=== PATIENT | female | born 1935 | race Caucasian/White ===

== ENCOUNTER 2018-02-24 15:11 | Inpatient (IN) | payer OTHER ==
[~2018-02-24] VITALS: Ht 152.4 cm; Wt 70.3 kg
[2018-02-24 15:51] LABS: BASOPHILS # (AUTO) 0.01 x10^3/uL (0-0.1); BASOPHILS % (AUTO) 0 % (0-1); EOSINOPHILS # (AUTO) 0.03 x10^3/uL (0-0.4); EOSINOPHILS % (AUTO) 1 % (1-7); LYMPHOCYTES # (AUTO) 1.03 x10^3/uL (1-3.4); LYMPHOCYTES % (AUTO) 21 % (22-44); MD NO; MEAN CORPUSCULAR HGB CONC 32.9 g/dL (32.4-35.8); MEAN CORPUSCULAR VOLUME 81.9 fL (80-100); MEAN PLATELET VOLUME 9.1 fL (7.4-10.4); MONOCYTES # (AUTO) 0.58 x10^3/uL (0.2-0.8); MONOCYTES % (AUTO) 12 % (2-9); NEUTROPHILS # (AUTO) 3.21 x10^3/uL (1.8-6.8); NEUTROPHILS % (AUTO) 66 % (42-75); PLATELET COUNT 159 x10^3/uL (130-400); RED BLOOD COUNT 4.74 x10^6/uL (3.82-5.3); RED CELL DISTRIBUTION WIDTH 16.2 % (9.6-15.2)
[2018-02-24 15:55] LABS: CULTURE INDICATED? YES; MICROSCOPIC INDICATED
[2018-02-24 15:56] LABS: ALBUMIN 3.7 g/dL (3.4-5.0); ANION GAP 6 mmol/L (5-15); CALCIUM 8.4 mg/dL (8.5-10.1); CHLORIDE 113 mmol/L (98-107); CREATININE 0.77 mg/dL (0.55-1.02)
[2018-02-24] MEDS ORDERED: SODIUM CHLORIDE FLUSH 10ML SYR IVF ONE (16:00)
[2018-02-24] MEDS ORDERED: LOSA50TA6 PO (17:41)
[2018-02-24 18:51] VITALS: BP 142/56
[2018-02-25 02:41] VITALS: BP 125/64
[2018-02-25 06:45] VITALS: BP 145/70
[2018-02-25 07:42] LABS: BASOPHILS # (AUTO) 0.01 x10^3/uL (0-0.1); BASOPHILS % (AUTO) 0 % (0-1); EOSINOPHILS # (AUTO) 0.03 x10^3/uL (0-0.4); EOSINOPHILS % (AUTO) 1 % (1-7); LYMPHOCYTES % (AUTO) 26 % (22-44); MD NO; MEAN CORPUSCULAR HEMOGLOBIN 26.4 pg (27.0-34.8); MEAN CORPUSCULAR HGB CONC 32.4 g/dL (32.4-35.8); MEAN CORPUSCULAR VOLUME 81.6 fL (80-100); MEAN PLATELET VOLUME 8.5 fL (7.4-10.4); MONOCYTES # (AUTO) 0.47 x10^3/uL (0.2-0.8); MONOCYTES % (AUTO) 15 % (2-9); NEUTROPHILS # (AUTO) 1.79 x10^3/uL (1.8-6.8); NEUTROPHILS % (AUTO) 58 % (42-75); PLATELET COUNT 141 x10^3/uL (130-400); RED BLOOD COUNT 4.57 x10^6/uL (3.82-5.3); RED CELL DISTRIBUTION WIDTH 16.2 % (9.6-15.2)
[2018-02-25 08:20] LABS: ALANINE AMINOTRANSFERASE 19 U/L (12-78); ALBUMIN 3.3 g/dL (3.4-5.0); ANION GAP 7 mmol/L (5-15); CALCIUM 7.7 mg/dL (8.5-10.1); CHLORIDE 111 mmol/L (98-107); CREATININE 0.56 mg/dL (0.55-1.02)
[2018-02-25 08:22] LABS: ALKALINE PHOSPHATASE 58 U/L (45-117); BILIRUBIN,TOTAL 0.7 mg/dL (0.2-1.0); TOTAL PROTEIN 6.1 g/dL (6.4-8.2)
[2018-02-25] MEDS ORDERED: MORPHINE SULFATE 4 MG/ML, 1ML IVPush ONE (10:00)
[2018-02-25] MEDS ORDERED: ACETAMINOPHEN 325 MG TABLET PO PRN (10:30)
[2018-02-25 12:08] VITALS: BP 154/67
[2018-02-25 20:11] VITALS: BP 136/69
[2018-02-25] MEDS: LOSARTAN 50MG TABLET PO SCH (20:25)
[2018-02-26 02:11] VITALS: BP 132/70
[2018-02-26 04:48] LABS: BASOPHILS # (AUTO) 0.01 x10^3/uL (0-0.1); BASOPHILS % (AUTO) 0 % (0-1); EOSINOPHILS # (AUTO) 0.04 x10^3/uL (0-0.4); EOSINOPHILS % (AUTO) 1 % (1-7); LYMPHOCYTES # (AUTO) 0.82 x10^3/uL (1-3.4); LYMPHOCYTES % (AUTO) 23 % (22-44); MD NO; MEAN CORPUSCULAR HEMOGLOBIN 26.6 pg (27.0-34.8); MEAN CORPUSCULAR HGB CONC 32.6 g/dL (32.4-35.8); MEAN CORPUSCULAR VOLUME 81.8 fL (80-100); MONOCYTES # (AUTO) 0.56 x10^3/uL (0.2-0.8); MONOCYTES % (AUTO) 16 % (2-9); NEUTROPHILS # (AUTO) 2.16 x10^3/uL (1.8-6.8); NEUTROPHILS % (AUTO) 60 % (42-75); PLATELET COUNT 147 x10^3/uL (130-400); RED BLOOD COUNT 4.58 x10^6/uL (3.82-5.3)
[2018-02-26 06:47] VITALS: BP 138/68
[2018-02-26] MEDS: LOSARTAN 50MG TABLET PO SCH (09:00)
[2018-02-26] MEDS ORDERED: PNEUMOCOCCAL 23 VACCINE IM-VACC ONE (13:00)
== END 2018-02-26 13:15 | disposition home or self-care (01) | DRG 696 ==
LOC: ED 17:31 → 3NW 17:32 → ED 18:19 → 3NW 18:21 → DCLOUNGE 02-26 12:58
PROVIDERS: ADMIT Hospitalist; ATTEND Hospitalist
DX: R31.0 Gross hematuria (principal); D72.819 Decreased white blood cell count, unspecified; I10 Essential (primary) hypertension; M47.9 Spondylosis, unspecified; K80.20 Calculus of gallbladder without cholecystitis without obstruction; Z90.710 Acquired absence of both cervix and uterus
CPT/HCPCS: 36415; 74176; 74177; 80048; 80053; 81001; 82040; 83735; 84100; 85014; 85018; 85025; 87086; 90732; 99285

== ENCOUNTER → 2018-03-27 | Outpatient (CLI) | payer MEDICARE, MEDICAID, OTHER ==
[~2018-03-27] MED LIST: LOSA50TA6 PO
[2018-03-27 15:25] LABS: BASOPHILS # (AUTO) 0.01 x10^3/uL (0-0.1); BASOPHILS % (AUTO) 0 % (0-1); EOSINOPHILS # (AUTO) 0.02 x10^3/uL (0-0.4); EOSINOPHILS % (AUTO) 1 % (1-7); LYMPHOCYTES # (AUTO) 0.88 x10^3/uL (1-3.4); LYMPHOCYTES % (AUTO) 23 % (22-44); MD NO; MEAN CORPUSCULAR HEMOGLOBIN 24.6 pg (27.0-34.8); MEAN CORPUSCULAR HGB CONC 31.4 g/dL (32.4-35.8); MEAN CORPUSCULAR VOLUME 78.3 fL (80-100); MEAN PLATELET VOLUME 8.3 fL (7.4-10.4); MONOCYTES # (AUTO) 0.47 x10^3/uL (0.2-0.8); MONOCYTES % (AUTO) 12 % (2-9); NEUTROPHILS # (AUTO) 2.44 x10^3/uL (1.8-6.8); NEUTROPHILS % (AUTO) 64 % (42-75); PLATELET COUNT 210 x10^3/uL (130-400); RED CELL DISTRIBUTION WIDTH 17.3 % (9.6-15.2)
[2018-03-27 15:28] LABS: ALBUMIN 3.4 g/dL (3.4-5.0); ANION GAP 7 mmol/L (5-15); CALCIUM 8.4 mg/dL (8.5-10.1); CHLORIDE 107 mmol/L (98-107)
[2018-03-27 15:31] LABS: ALANINE AMINOTRANSFERASE 21 U/L (12-78); ALKALINE PHOSPHATASE 68 U/L (45-117); BILIRUBIN,TOTAL 0.9 mg/dL (0.2-1.0); CREATININE 0.78 mg/dL (0.55-1.02); TOTAL PROTEIN 6.4 g/dL (6.4-8.2)
[2018-03-27 16:27] LABS: MICROSCOPIC INDICATED
== END | disposition home or self-care (01) ==
LOC: STAR 14:12
PROVIDERS: ATTEND Urology
DX: Z01.818 Encounter for other preprocedural examination (principal); D49.511 Neoplasm of unspecified behavior of right kidney
CPT/HCPCS: 36415; 80053; 81001; 85025; 87086; 93005

== ENCOUNTER → 2018-05-05 | Outpatient (CLI) | payer MEDICARE, MEDICAID, OTHER ==
[2018-05-05 16:25] LABS: ANION GAP 8 mmol/L (5-15); CALCIUM 8.3 mg/dL (8.5-10.1); CHLORIDE 104 mmol/L (98-107)
== END | disposition home or self-care (01) ==
LOC: LAB 15:54
PROVIDERS: ATTEND Internal Medicine Cardiovascular Disease
DX: I35.0 Nonrheumatic aortic (valve) stenosis (principal)
CPT/HCPCS: 36415; 80048

== ENCOUNTER → 2018-05-11 | Outpatient (CLI) | payer MEDICARE, MEDICAID ==
[~2018-05-11] MED LIST changes: +OMNIPAQUE 350 MG/ML, 150 ML BOTTLE ONE
== END | disposition home or self-care (01) ==
LOC: CVU 08:13
PROVIDERS: ATTEND Internal Medicine Cardiovascular Disease
DX: I65.23 Occlusion and stenosis of bilateral carotid arteries (principal); Q25.46 Tortuous aortic arch; R91.8 Other nonspecific abnormal finding of lung field; I10 Essential (primary) hypertension; I35.0 Nonrheumatic aortic (valve) stenosis
CPT/HCPCS: 71275; 74174; 93880; 94060; 94726; 94729; Q9967

== ENCOUNTER 2018-06-02 06:03 | Inpatient (IN) | payer MEDICARE, MEDICAID ==
[~2018-06-02] VITALS: Ht 160 cm; Wt 63.8 kg
[~2018-06-02 06:03] MED LIST changes: -LOSA50TA6 PO; +LOSA50TA7 PO; -OMNIPAQUE 350 MG/ML, 150 ML BOTTLE ONE
[2018-06-02] MEDS ORDERED: SODIUM CHLORIDE 0.9% 1,000 ML IV ONE (06:16)
[2018-06-02 06:28] VITALS: BP 159/82
[2018-06-02] MEDS ORDERED: ONDANSETRON 2MG/ML, 2ML IVPush PRN (06:30)
[2018-06-02] MEDS ORDERED: CHLORHEXIDINE 15 ML UDC MM PRN (06:30)
[2018-06-02 06:43] LABS: BASOPHILS # (AUTO) 0.01 x10^3/uL (0-0.1); BASOPHILS % (AUTO) 0 % (0-1); EOSINOPHILS # (AUTO) 0.05 x10^3/uL (0-0.4); EOSINOPHILS % (AUTO) 1 % (1-7); LYMPHOCYTES # (AUTO) 0.85 x10^3/uL (1-3.4); LYMPHOCYTES % (AUTO) 25 % (22-44); MD NO; MEAN CORPUSCULAR HEMOGLOBIN 23.7 pg (27.0-34.8); MEAN CORPUSCULAR HGB CONC 31.7 g/dL (32.4-35.8); MEAN CORPUSCULAR VOLUME 74.9 fL (80-100); MEAN PLATELET VOLUME 8.2 fL (7.4-10.4); MONOCYTES # (AUTO) 0.43 x10^3/uL (0.2-0.8); MONOCYTES % (AUTO) 13 % (2-9); NEUTROPHILS # (AUTO) 2.08 x10^3/uL (1.8-6.8); NEUTROPHILS % (AUTO) 61 % (42-75); PLATELET COUNT 178 x10^3/uL (130-400); RED BLOOD COUNT 4.94 x10^6/uL (3.82-5.3); RED CELL DISTRIBUTION WIDTH 16.5 % (9.6-15.2)
[2018-06-02 06:56] LABS: ALANINE AMINOTRANSFERASE 16 U/L (12-78); ALBUMIN 3.6 g/dL (3.4-5.0); ANION GAP 6 mmol/L (5-15); CALCIUM 8.2 mg/dL (8.5-10.1); CHLORIDE 110 mmol/L (98-107); CREATININE 1.15 mg/dL (0.55-1.02)
[2018-06-02 07:01] LABS: ALKALINE PHOSPHATASE 71 U/L (45-117); BILIRUBIN,TOTAL 0.4 mg/dL (0.2-1.0); TOTAL PROTEIN 6.8 g/dL (6.4-8.2)
[2018-06-02] MEDS ORDERED: FENTANYL PF 250 MCG/5ML ONE (07:25)
[2018-06-02] MEDS ORDERED: PROPOFOL 10 MG/ML, 20ML ONE (07:27)
[2018-06-02] MEDS ORDERED: ROCURONIUM 10MG/ML,5ML ONE (07:27)
[2018-06-02] MEDS ORDERED: ONDANSETRON ODT 8 MG ONE (07:27)
[2018-06-02] MEDS ORDERED: HEPARIN 1,000 UNITS/ML, 30ML ONE (07:27)
[2018-06-02] MEDS ORDERED: LIDOCAINE GEL 2%, 5ML ONE (07:28)
[2018-06-02] MEDS ORDERED: CEFAZOLIN 1,000 MG ONE (07:41)
[2018-06-02] MEDS ORDERED: SUCCINYLCHOLINE 20 MG/ML, 10ML ONE (07:41)
[2018-06-02] MEDS ORDERED: ONDANSETRON 2MG/ML, 2ML ONE (07:41)
[2018-06-02 07:59] LABS: INTERNATIONAL NORMALIZED RATIO 0.99 (0.93-1.1); PROTHROMBIN TIME 10.2 Seconds (9.6-11.5)
[2018-06-02] MEDS ORDERED: PROTAMINE SULFATE 10 MG/ML, 25ML ONE (08:24)
[2018-06-02] MEDS: SODIUM CHLORIDE 0.9% 1,000 ML IV SCH ×2 (09:16→20:20)
[2018-06-02] MEDS ORDERED: ACETAMINOPHEN 325 MG TABLET PO PRN (09:30)
[2018-06-02] MEDS ORDERED: LABETALOL 20 MG/4 ML IVPush PRN (09:30)
[2018-06-02] MEDS ORDERED: hydrALAzine 20 MG/ML, 1ML IVPush PRN (09:30)
[2018-06-02] MEDS ORDERED: HYDROcodone/APAP 5/325 TABLET ONE (11:26)
[2018-06-02] MEDS ORDERED: HYDROcodone/APAP 5/325 TABLET PO PRN (11:30)
[2018-06-02 19:11] VITALS: BP 120/61
[2018-06-02] MEDS ORDERED: CLOPIDOGREL 300 MG TABLET PO ONE (21:00)
[2018-06-03 02:12] VITALS: BP 115/56
[2018-06-03 05:31] LABS: BASOPHILS # (AUTO) 0.02 x10^3/uL (0-0.1); BASOPHILS % (AUTO) 0 % (0-1); EOSINOPHILS # (AUTO) 0.07 x10^3/uL (0-0.4); EOSINOPHILS % (AUTO) 1 % (1-7); LYMPHOCYTES % (AUTO) 18 % (22-44); MD NO; MEAN CORPUSCULAR HEMOGLOBIN 24.2 pg (27.0-34.8); MEAN CORPUSCULAR VOLUME 75.6 fL (80-100); MEAN PLATELET VOLUME 9.2 fL (7.4-10.4); MONOCYTES # (AUTO) 0.74 x10^3/uL (0.2-0.8); MONOCYTES % (AUTO) 12 % (2-9); NEUTROPHILS # (AUTO) 4.34 x10^3/uL (1.8-6.8); NEUTROPHILS % (AUTO) 69 % (42-75); PLATELET COUNT 160 x10^3/uL (130-400); RED CELL DISTRIBUTION WIDTH 16.4 % (9.6-15.2)
[2018-06-03 05:40] LABS: ALBUMIN 2.8 g/dL (3.4-5.0); ANION GAP 4 mmol/L (5-15); CALCIUM 7.9 mg/dL (8.5-10.1); CHLORIDE 110 mmol/L (98-107); CREATININE 0.99 mg/dL (0.55-1.02)
[2018-06-03 07:39] VITALS: BP 104/56
[2018-06-03] MEDS ORDERED: CLOPIDOGREL 75 MG TABLET PO SCH (09:00)
[2018-06-03] MEDS ORDERED: ASPIRIN 81 MG TABLET EC PO SCH (09:00)
[2018-06-03] MEDS: SODIUM CHLORIDE 0.9% 1,000 ML IV SCH (11:33)
[2018-06-03 12:43] VITALS: BP 132/57
[2018-06-03] MEDS ORDERED: ASPI-621 PO (14:51)
[2018-06-03] MEDS ORDERED: CLOP75TA PO (14:51)
== END 2018-06-03 16:31 | disposition home or self-care (01) | DRG 266 ==
LOC: ORIP 06:03 → CSU 08:59 → 5SO 16:58
PROVIDERS: ADMIT Internal Medicine Cardiovascular Disease; ATTEND Internal Medicine Cardiovascular Disease
PROC: B24BZZ4 Ultrasonography of Heart with Aorta, Transesophageal (ICD-10-PCS; 2018-06-02)
PROC: B3101ZZ Fluoroscopy of Thoracic Aorta using Low Osmolar Contrast (ICD-10-PCS; 2018-06-02)
PROC: 03HY32Z Insertion of Monitoring Device into Upper Artery, Percutaneous Approach (ICD-10-PCS; 2018-06-02)
PROC: 4A133B1 Monitoring of Arterial Pressure, Peripheral, Percutaneous Approach (ICD-10-PCS; 2018-06-02)
PROC: 4A133J1 Monitoring of Arterial Pulse, Peripheral, Percutaneous Approach (ICD-10-PCS; 2018-06-02)
PROC: 02RF38Z Replacement of Aortic Valve with Zooplastic Tissue, Percutaneous Approach (ICD-10-PCS; principal; 2018-06-02 08:00)
DX: I35.0 Nonrheumatic aortic (valve) stenosis (principal); Z00.6 Encounter for examination for normal comparison and control in clinical research program; I50.33 Acute on chronic diastolic (congestive) heart failure; I10 Essential (primary) hypertension; Z85.528 Personal history of other malignant neoplasm of kidney; Z90.5 Acquired absence of kidney
CPT/HCPCS: 33361; 36415; 80048; 80053; 82040; 83880; 85025; 85347; 85610; 85730; 86850; 86860; 86870; 86880; 86900; 86902; 86922; 86923; 87081; 93005; 93306; 93312; 93321; 93325; 93355; C1760; C1769; C1894; G0378; J0690; J1644; J2405; J2704; J2720; J3010; Q0162; J0330; J0360; J3490; J7030; Q9967

== ENCOUNTER → 2018-06-30 | Outpatient (CLI) | payer MEDICARE, MEDICAID ==
[~2018-06-30] MED LIST changes: +ASPI-621 PO; +CLOP75TA PO
== END | disposition home or self-care (01) ==
LOC: CVU 08:25
PROVIDERS: ATTEND Internal Medicine Cardiovascular Disease
DX: I34.8 Other nonrheumatic mitral valve disorders (principal); I10 Essential (primary) hypertension
CPT/HCPCS: 93306

== ENCOUNTER 2019-01-02 13:31 | Inpatient (IN) | payer MEDICAID, MEDICARE ==
[~2019-01-02] VITALS: Ht 144.8 cm; Wt 77.9 kg
[~2019-01-02 13:31] MED LIST changes: -ASPI-621 PO; +ASPI81TA45 PO; +LOSA50TA14 PO; -LOSA50TA7 PO
[2019-01-02] MEDS ORDERED: ACETAMINOPHEN 325 MG TABLET ONE (14:11)
[2019-01-02] MEDS ORDERED: ONDANSETRON 2MG/ML, 2ML ONE (14:14)
[2019-01-02] MEDS ORDERED: SODIUM CHLORIDE FLUSH 10ML SYR IVF ONE (14:30)
[2019-01-02] MEDS ORDERED: ONDANSETRON 2MG/ML, 2ML IVPush ONE (14:30)
[2019-01-02] MEDS ORDERED: ACETAMINOPHEN 325 MG TABLET PO ONE (14:30)
--- NOTE | 2019-01-02 14:43 | NUR ---
PT TO ROOM 39 W/ C/O FEVER, SORE THROAT, AND GENERALLY NOT FEELING WELL. PT PLACED ON MONITORS. PIV INITIATED. MEDICATED PER NOV. EKG CMP. PT RESTING ON GURNEY. NADN. REPOSITIONED FOR COMFORT. FAMILY AT BEDSIDE.
--- NOTE | 2019-01-02 14:48 | NUR ---
PT BP NOTED TO BE SBP 87 THEN AGAIN AT 94. SPOKE W/ DR. LATIF WHO STATES TO MONITOR BP UNTIL LAB WORK RETURNS TO ASSESS BUN/CREATININE.
[2019-01-02 14:49] LABS: CULTURE INDICATED? YES; MICROSCOPIC INDICATED
[2019-01-02 14:54] LABS: INTERNATIONAL NORMALIZED RATIO 1.04 (0.93-1.1); PROTHROMBIN TIME 10.9 Seconds (9.6-11.5)
[2019-01-02 14:55] LABS: ALANINE AMINOTRANSFERASE 32 U/L (12-78); ALBUMIN 2.7 g/dL (3.4-5.0); ANION GAP 10 mmol/L (5-15); CALCIUM 7.7 mg/dL (8.5-10.1); CHLORIDE 103 mmol/L (98-107); CREATININE 2.65 mg/dL (0.55-1.02)
[2019-01-02 15:00] LABS: ALKALINE PHOSPHATASE 88 U/L (45-117); BILIRUBIN,TOTAL 1.2 mg/dL (0.2-1.0); TOTAL PROTEIN 6.2 g/dL (6.4-8.2)
[2019-01-02] MEDS ORDERED: CEFTRIAXONE PMX 1GM/50ML 50 ML IVPB ONE (15:00)
--- NOTE | 2019-01-02 15:05 | NUR ---
Break RN note: Pt resting in bed, NADN, resp even and unlabored. Pt denies needs at this time.
[2019-01-02 15:15] LABS: BASOPHILS % (AUTO) 0 % (0-1); EOSINOPHILS # (AUTO) 0.01 x10^3/uL (0-0.4); EOSINOPHILS % (AUTO) 0 % (1-7); LYMPHOCYTES # (AUTO) 0.15 x10^3/uL (1-3.4); LYMPHOCYTES % (AUTO) 4 % (22-44); MD SCAN; MEAN CORPUSCULAR HEMOGLOBIN 23.6 pg (27.0-34.8); MEAN CORPUSCULAR HGB CONC 31.4 g/dL (32.4-35.8); MEAN CORPUSCULAR VOLUME 74.9 fL (80-100); MONOCYTES # (AUTO) 0.18 x10^3/uL (0.2-0.8); MONOCYTES % (AUTO) 5 % (2-9); NEUTROPHILS # (AUTO) 3.49 x10^3/uL (1.8-6.8); NEUTROPHILS % (AUTO) 91 % (42-75); PLATELET COUNT 91 x10^3/uL (130-400); RED BLOOD COUNT 4.31 x10^6/uL (3.82-5.3); RED CELL DISTRIBUTION WIDTH 16.3 % (9.6-15.2)
[2019-01-02] MEDS ORDERED: CEFTRIAXONE PMX 1GM/50ML 50 ML ONE (15:26)
--- NOTE | 2019-01-02 15:27 | NUR ---
SPOKE W/ ERP DR. LATIF ABOUT PT BP REMAINING IN THE HIGH 80'S SYSTOLICALLY. PER ERP GIVE 1 L NS BOLUS. DISCUSSED PT SEPSIS PROTOCOL 30 ML/KG. PER ERP HOLD OFF FOR NOW AND ASSESS PT ONCE 1L NS INFUSED.
[2019-01-02] MEDS ORDERED: SODIUM CHLORIDE 0.9% 1,000ML IVBOLUS ONE ×2 (15:30→16:00)
--- NOTE | 2019-01-02 16:42 | NUR ---
PT RESTING ON SIMRAN. MYRIAM. VSS. FAMILY REMAINS AT BEDSIDE. AWARE OF POC FOR ADMIT.
--- NOTE | 2019-01-02 17:28 | NUR ---
DR. SILVERMAN AT BEDSIDE.
[2019-01-02] MEDS ORDERED: SODIUM CHLORIDE FLUSH 10ML SYR IVF PRN (17:30)
--- NOTE | 2019-01-02 17:34 | NUR ---
PT RESTING ON GURNEY. NADN. CHAPPELL.
[2019-01-02] MEDS ORDERED: ONDANSETRON 2MG/ML, 2ML IVPush PRN (18:00)
[2019-01-02] MEDS ORDERED: ONDANSETRON ODT 4 MG PO PRN (18:00)
[2019-01-02] MEDS ORDERED: LIDODERM 5% PATCH TD PRN (18:00)
[2019-01-02] MEDS ORDERED: BISACODYL 10 MG SUPP PR PRN (18:00)
[2019-01-02] MEDS ORDERED: LABETALOL 5 MG/ML SYRINGE IVPush PRN (18:00)
[2019-01-02] MEDS ORDERED: hydrALAzine 20 MG/ML, 1ML IVPush PRN (18:00)
[2019-01-02] MEDS ORDERED: DOCUSATE 100 MG CAPSULE PO PRN (18:00)
[2019-01-02] MEDS ORDERED: ZOLPIDEM 5MG TABLET PO PRN (18:00)
[2019-01-02] MEDS: HEPARIN 5,000 UNITS/ML, 1ML SQ SCH (18:00)
[2019-01-02] MEDS ORDERED: POLYETHYLENE GLYCOL 17 GM PACKET PO PRN (18:00)
--- NOTE | 2019-01-02 18:07 | NUR ---
REPORT GIVEN TO AMANDA, RECEIVING RN. ALL QUESTIONS ANSWERED. AWAITING PT TRANSPORT.
[2019-01-02 18:41] LABS: BASOPHILS % (AUTO) 0 % (0-1); EOSINOPHILS # (AUTO) 0.01 x10^3/uL (0-0.4); EOSINOPHILS % (AUTO) 0 % (1-7); LYMPHOCYTES # (AUTO) 0.25 x10^3/uL (1-3.4); LYMPHOCYTES % (AUTO) 5 % (22-44); MD SCAN; MEAN CORPUSCULAR HEMOGLOBIN 24.2 pg (27.0-34.8); MEAN CORPUSCULAR HGB CONC 32.3 g/dL (32.4-35.8); MEAN CORPUSCULAR VOLUME 74.8 fL (80-100); MEAN PLATELET VOLUME 9.4 fL (7.4-10.4); MONOCYTES # (AUTO) 0.64 x10^3/uL (0.2-0.8); MONOCYTES % (AUTO) 13 % (2-9); NEUTROPHILS # (AUTO) 3.99 x10^3/uL (1.8-6.8); NEUTROPHILS % (AUTO) 82 % (42-75); PLATELET COUNT 79 x10^3/uL (130-400); RED CELL DISTRIBUTION WIDTH 16.6 % (9.6-15.2)
[2019-01-02 18:54] LABS: HCT (SEDRATE) 27.7 % (34.6-47.8)
[2019-01-02 18:58] LABS: ANION GAP 8 mmol/L (5-15); CALCIUM 6.8 mg/dL (8.5-10.1); CHLORIDE 108 mmol/L (98-107)
[2019-01-02 19:00] LABS: CREATININE 2.28 mg/dL (0.55-1.02)
[2019-01-02 19:10] LABS: FREE T4 (FREE THYROXINE) 1.31 ng/dL (0.76-1.46); THYROID STIMULATING HORMONE 0.405 mIU/L (0.358-3.740)
[2019-01-02 20:22] VITALS: BP 105/45
[2019-01-02] MEDS: LACTATED RINGERS 1,000 ML IV SCH (21:05)
[2019-01-02 22:14] VITALS: BP 159/86
[2019-01-02] MEDS: ACETAMINOPHEN 325 MG TABLET PO PRN (22:19)
[2019-01-02 23:40] VITALS: BP 89/42
[2019-01-02 23:59] VITALS: BP 89/39
[2019-01-03 00:15] VITALS: BP 93/53
[2019-01-03 01:41] VITALS: BP 105/45
[2019-01-03] MEDS: HEPARIN 5,000 UNITS/ML, 1ML SQ SCH ×4 (02:00→17:42)
[2019-01-03] MEDS: CEFTRIAXONE PMX 1GM/50ML 50 ML IV SCH ×2 (03:47→15:16)
[2019-01-03] MEDS: LACTATED RINGERS 1,000 ML IV SCH ×3 (05:09→20:04)
[2019-01-03 07:56] VITALS: BP 100/53
[2019-01-03] MEDS: PANTOPROZOLE 40MG TABLET PO SCH (08:11)
[2019-01-03 18:49] VITALS: BP 95/50
[2019-01-03] MEDS: ACETAMINOPHEN 325 MG TABLET PO PRN (20:03)
[2019-01-04 01:36] VITALS: BP 99/59
[2019-01-04] MEDS: LACTATED RINGERS 1,000 ML IV SCH ×3 (03:41→20:19)
[2019-01-04] MEDS: CEFTRIAXONE PMX 1GM/50ML 50 ML IV SCH (03:42)
[2019-01-04 06:01] LABS: MEAN CORPUSCULAR HEMOGLOBIN 24.1 pg (27.0-34.8); MEAN CORPUSCULAR VOLUME 75.5 fL (80-100); RED BLOOD COUNT 3.54 x10^6/uL (3.82-5.3); RED CELL DISTRIBUTION WIDTH 17.1 % (9.6-15.2)
[2019-01-04 06:02] LABS: ANION GAP 6 mmol/L (5-15); CALCIUM 7.5 mg/dL (8.5-10.1); CHLORIDE 109 mmol/L (98-107); CREATININE 2.09 mg/dL (0.55-1.02)
[2019-01-04 06:28] LABS: MEAN PLATELET VOLUME 10.2 fL (7.4-10.4); PLATELET COUNT 75 x10^3/uL (130-400)
[2019-01-04 06:29] LABS: MD YES
[2019-01-04 06:31] LABS: EOS% (MANUAL) 3 % (1-7); LYMPH#(MANUAL) 0.43 x10^3/uL (1-3.4); LYMPHS% (MANUAL) 13 % (22-44); MONOS#(MANUAL) 0.56 x10^3/uL (0.3-2.7); MONOS% (MANUAL) 17 % (2-9); SEG#(MANUAL) 2.21 x10^3/uL (1.8-6.8); SEGS% (MANUAL) 67 % (42-75)
[2019-01-04 06:32] LABS: <PLATELET ESTIMATE> DECREASED; ANISOCYTOSIS 1+; LARGE PLATELETS 1+; MICROCYTOSIS 1+; OVALOCYTES 1+
[2019-01-04 07:15] VITALS: BP 121/63
[2019-01-04] MEDS: ACETAMINOPHEN 325 MG TABLET PO PRN ×3 (07:29→20:27)
[2019-01-04] MEDS: PANTOPROZOLE 40MG TABLET PO SCH (07:29)
[2019-01-04] MEDS ORDERED: ZOSYN PER PHARMACY MC PRN (07:30)
[2019-01-04] MEDS: PIPERACILLIN/TAZO(ZOSYN) 2.25 GM in NS 50 ML IVPB SCH ×3 (08:31→20:19)
[2019-01-04] MEDS: HEPARIN 5,000 UNITS/ML, 1ML SQ SCH ×2 (08:38→17:53)
[2019-01-04 11:39] LABS: CREATININE,URINE RANDOM 40.9 mg/dL
[2019-01-04 14:00] VITALS: BP 158/60
[2019-01-04 18:35] VITALS: BP 115/62
[2019-01-05 01:08] VITALS: BP 125/64
[2019-01-05] MEDS: HEPARIN 5,000 UNITS/ML, 1ML SQ SCH ×3 (02:04→18:13)
[2019-01-05] MEDS: PIPERACILLIN/TAZO(ZOSYN) 2.25 GM in NS 50 ML IVPB SCH ×4 (02:04→22:15)
[2019-01-05 05:21] LABS: MEAN CORPUSCULAR HGB CONC 31.7 g/dL (32.4-35.8); MEAN CORPUSCULAR VOLUME 75.6 fL (80-100); RED BLOOD COUNT 3.51 x10^6/uL (3.82-5.3); RED CELL DISTRIBUTION WIDTH 16.8 % (9.6-15.2)
[2019-01-05 05:27] LABS: ALBUMIN 2.1 g/dL (3.4-5.0); ANION GAP 5 mmol/L (5-15); CHLORIDE 111 mmol/L (98-107)
[2019-01-05] MEDS: LACTATED RINGERS 1,000 ML IV SCH (05:27)
[2019-01-05 05:34] LABS: ALANINE AMINOTRANSFERASE 21 U/L (12-78); ALKALINE PHOSPHATASE 57 U/L (45-117); BILIRUBIN,TOTAL 0.1 mg/dL (0.2-1.0); CALCIUM 7.9 mg/dL (8.5-10.1); CREATININE 1.87 mg/dL (0.55-1.02); TOTAL PROTEIN 4.7 g/dL (6.4-8.2)
[2019-01-05] MEDS: ACETAMINOPHEN 325 MG TABLET PO PRN ×2 (05:36→15:37)
[2019-01-05 05:58] LABS: MD YES
[2019-01-05 05:59] LABS: MEAN PLATELET VOLUME 9.8 fL (7.4-10.4); PLATELET COUNT 75 x10^3/uL (130-400)
[2019-01-05 06:02] LABS: ANISOCYTOSIS 1+; BAND#(MANUAL) 0.03 x10^3/uL; BANDS%(MANUAL) 1 % (0-7); EOS#(MANUAL) 0.03 x10^3/uL (0.0-0.4); EOS% (MANUAL) 1 % (1-7); LYMPHS% (MANUAL) 16 % (22-44); MICROCYTOSIS 1+; MONOS% (MANUAL) 13 % (2-9); SEG#(MANUAL) 2.14 x10^3/uL (1.8-6.8); SEGS% (MANUAL) 69 % (42-75)
[2019-01-05 06:03] LABS: <PLATELET ESTIMATE> DECREASED; <PLT MORPHOLOGY> NORMAL PLT MORPH; OVALOCYTES 1+
[2019-01-05 06:53] VITALS: BP 125/64
[2019-01-05] MEDS: PANTOPROZOLE 40MG TABLET PO SCH (07:38)
[2019-01-05 12:25] LABS: HIT RESULT NEGATIVE (NEGATIVE)
[2019-01-05 12:46] VITALS: BP 183/63
[2019-01-05 14:15] VITALS: BP 161/66
[2019-01-05 19:57] VITALS: BP 160/56
[2019-01-06 01:26] VITALS: BP 160/63
[2019-01-06] MEDS: LACTATED RINGERS 1,000 ML IV SCH (01:50)
[2019-01-06] MEDS: HEPARIN 5,000 UNITS/ML, 1ML SQ SCH ×2 (01:50→11:01)
[2019-01-06] MEDS: ACETAMINOPHEN 325 MG TABLET PO PRN (01:52)
[2019-01-06 05:27] LABS: MEAN CORPUSCULAR HEMOGLOBIN 24.2 pg (27.0-34.8); MEAN CORPUSCULAR HGB CONC 32.3 g/dL (32.4-35.8); MEAN CORPUSCULAR VOLUME 74.8 fL (80-100); RED BLOOD COUNT 3.43 x10^6/uL (3.82-5.3); RED CELL DISTRIBUTION WIDTH 16.7 % (9.6-15.2)
[2019-01-06] MEDS: PIPERACILLIN/TAZO(ZOSYN) 2.25 GM in NS 50 ML IVPB SCH (05:33)
[2019-01-06 05:34] LABS: ALBUMIN 1.9 g/dL (3.4-5.0); ANION GAP 6 mmol/L (5-15); CALCIUM 7.5 mg/dL (8.5-10.1); CHLORIDE 111 mmol/L (98-107)
[2019-01-06 05:38] LABS: ALANINE AMINOTRANSFERASE 23 U/L (12-78); ALKALINE PHOSPHATASE 60 U/L (45-117); BILIRUBIN,TOTAL 0.5 mg/dL (0.2-1.0); CREATININE 1.46 mg/dL (0.55-1.02); TOTAL PROTEIN 4.6 g/dL (6.4-8.2)
[2019-01-06 05:46] LABS: BASOPHILS # (AUTO) 0.01 x10^3/uL (0-0.1); BASOPHILS % (AUTO) 0 % (0-1); EOSINOPHILS # (AUTO) 0.07 x10^3/uL (0-0.4); EOSINOPHILS % (AUTO) 2 % (1-7); LYMPHOCYTES # (AUTO) 0.54 x10^3/uL (1-3.4); LYMPHOCYTES % (AUTO) 16 % (22-44); MD SCAN; MEAN PLATELET VOLUME 9.8 fL (7.4-10.4); MONOCYTES # (AUTO) 0.56 x10^3/uL (0.2-0.8); MONOCYTES % (AUTO) 17 % (2-9); NEUTROPHILS # (AUTO) 2.12 x10^3/uL (1.8-6.8); NEUTROPHILS % (AUTO) 64 % (42-75); PLATELET COUNT 84 x10^3/uL (130-400)
[2019-01-06 07:06] VITALS: BP 153/64
[2019-01-06] MEDS: PANTOPROZOLE 40MG TABLET PO SCH (08:13)
[2019-01-06] MEDS ORDERED: AMLO10TA8 PO (11:42)
[2019-01-06] MEDS ORDERED: FERR-51 PO (11:42)
[2019-01-06] MEDS ORDERED: LEVO500T47 PO (11:42)
[2019-01-06] MEDS ORDERED: CLON0.1T22 PO (11:42)
[2019-01-06] MEDS ORDERED: FERROUS SULFATE 325 MG TABLET PO SCH (17:00)
[2019-01-06] MEDS ORDERED: LACTATED RINGERS 1,000 ML IV SCH (18:00)
[2019-01-07] MEDS ORDERED: AMLODIPINE 5 MG TABLET PO SCH (09:00)
== END 2019-01-06 13:20 | disposition home or self-care (01) | DRG 872 ==
LOC: ED 14:59 → EDIP 17:12 → 3NE 18:30 → DCLOUNGE 01-06 12:58
PROVIDERS: ADMIT Hospitalist; ATTEND Hospitalist
DX: A41.51 Sepsis due to Escherichia coli [E. coli] (principal); D61.818 Other pancytopenia; E44.0 Moderate protein-calorie malnutrition; E87.1 Hypo-osmolality and hyponatremia; E87.2 Acidosis; N12 Tubulo-interstitial nephritis, not specified as acute or chronic; N17.9 Acute kidney failure, unspecified; B96.20 Unspecified Escherichia coli [E. coli] as the cause of diseases classified elsewhere; D50.9 Iron deficiency anemia, unspecified; D63.8 Anemia in other chronic diseases classified elsewhere; D69.59 Other secondary thrombocytopenia; Z68.37 Body mass index [BMI] 37.0-37.9, adult; E83.51 Hypocalcemia; I12.9 Hypertensive chronic kidney disease with stage 1 through stage 4 chronic kidney disease, or unspecified chronic kidney disease; I35.0 Nonrheumatic aortic (valve) stenosis; N18.9 Chronic kidney disease, unspecified; N30.90 Cystitis, unspecified without hematuria; Z85.528 Personal history of other malignant neoplasm of kidney; Z90.5 Acquired absence of kidney; Z90.710 Acquired absence of both cervix and uterus; Z95.2 Presence of prosthetic heart valve
CPT/HCPCS: 36415; 71046; 80048; 80053; 81001; 82436; 82570; 82728; 83540; 83550; 83605; 83690; 83880; 84133; 84145; 84300; 84439; 84443; 85025; 85610; 85651; 85730; 86022; 87040; 87077; 87086; 87186; 93005; 96365; 96375; 99285; G0378; J0696; J1644; J2405; J2543; J7030; J7120

== ENCOUNTER → 2019-01-12 | Outpatient (CLI) | payer MEDICAID, MEDICARE ==
[~2019-01-12] MED LIST changes: +AMLO10TA8 PO; +CLON0.1T22 PO; +FERR-51 PO; +LEVO500T47 PO
== END | disposition home or self-care (01) ==
LOC: CFH 16:00
PROVIDERS: ATTEND Internal Medicine Cardiovascular Disease
DX: A41.9 Sepsis, unspecified organism (principal); I11.9 Hypertensive heart disease without heart failure; I08.0 Rheumatic disorders of both mitral and aortic valves
CPT/HCPCS: 93306

== ENCOUNTER 2019-07-20 08:57 | Emergency (ER) | payer OTHER ==
[~2019-07-20] VITALS: Ht 160 cm; Wt 68.2 kg
[2019-07-20] MEDS ORDERED: AMLO-150 PO (09:57)
[2019-07-20] MEDS ORDERED: HYDR-3342 PO (09:58)
[2019-07-20] MEDS ORDERED: HYDR-3240 PO (09:59)
[2019-07-20] MEDS ORDERED: CLOP75TA PO (09:59)
[2019-07-20 10:50] LABS: BASOPHILS # (AUTO) 0.02 x10^3/uL (0-0.1); BASOPHILS % (AUTO) 1 % (0-1); EOSINOPHILS # (AUTO) 0.06 x10^3/uL (0-0.4); EOSINOPHILS % (AUTO) 1 % (1-7); LYMPHOCYTES # (AUTO) 0.97 x10^3/uL (1-3.4); LYMPHOCYTES % (AUTO) 21 % (22-44); MD NO; MEAN CORPUSCULAR HEMOGLOBIN 28.2 pg (27.0-34.8); MEAN CORPUSCULAR HGB CONC 32.8 g/dL (32.4-35.8); MEAN CORPUSCULAR VOLUME 85.8 fL (80-100); MEAN PLATELET VOLUME 8.6 fL (7.4-10.4); MONOCYTES # (AUTO) 0.85 x10^3/uL (0.2-0.8); MONOCYTES % (AUTO) 19 % (2-9); NEUTROPHILS # (AUTO) 2.63 x10^3/uL (1.8-6.8); NEUTROPHILS % (AUTO) 58 % (42-75); PLATELET COUNT 142 x10^3/uL (130-400); RED BLOOD COUNT 4.56 x10^6/uL (3.82-5.3); RED CELL DISTRIBUTION WIDTH 15.1 % (9.6-15.2)
[2019-07-20 11:02] LABS: ALBUMIN 3.5 g/dL (3.4-5.0); ANION GAP 7 mmol/L (5-15); CALCIUM 8.2 mg/dL (8.5-10.1); CHLORIDE 104 mmol/L (98-107); CREATININE 1.09 mg/dL (0.55-1.02)
[2019-07-20 11:57] VITALS: BP 146/76
--- NOTE | 2019-07-20 11:57 | NUR ---
URINE COLLECTED AND VITALS UPDATED.
[2019-07-20 13:08] LABS: MICROSCOPIC NOT IND
[2019-07-20 13:11] LABS: CULTURE INDICATED? NO
== END 2019-07-20 13:57 | disposition home or self-care (01) ==
LOC: ED 12:10
DX: S06.0X0A Concussion without loss of consciousness, initial encounter (principal); S13.4XXA Sprain of ligaments of cervical spine, initial encounter; S00.03XA Contusion of scalp, initial encounter; S30.0XXA Contusion of lower back and pelvis, initial encounter; I10 Essential (primary) hypertension; Z90.710 Acquired absence of both cervix and uterus; W01.0XXA Fall on same level from slipping, tripping and stumbling without subsequent striking against object, initial encounter; Y93.89 Activity, other specified; Y92.89 Other specified places as the place of occurrence of the external cause; Y99.8 Other external cause status
CPT/HCPCS: 36415; 70450; 72125; 72220; 80048; 81003; 82040; 85025; 99284